=== PATIENT | male | born 1940 | race Two or more races ===

== ENCOUNTER 2021-02-17 17:44 | Emergency (ER) | payer MEDICARE, OTHER ==
[~2021-02-17] VITALS: Ht 167.6 cm; Wt 59.0 kg
[~2021-02-17 17:44] MED LIST: ASPI325T20 PO; LISI5TAB7 PO; METO25TA35 PO
--- NOTE | 2021-02-17 18:20 | NUR ---
DM BERNARD. DR. GAYTAN AT BEDSIDE FOR ASSESSMENT.
[2021-02-17 18:33] LABS: BASOPHILS % (AUTO) 0 % (0-1); EOSINOPHILS % (AUTO) 3 % (1-7); LYMPHOCYTES % (AUTO) 12 % (22-44); MEAN CORPUSCULAR HEMOGLOBIN 29.8 pg (27.5-34.5); MEAN CORPUSCULAR HGB CONC 33.6 g/dL (33.2-36.2); MEAN PLATELET VOLUME 9.6 fL (7.4-10.4); MONOCYTES % (AUTO) 14 % (2-9); NEUTROPHILS % (AUTO) 71 % (42-75); PLATELET COUNT 125 x10^3/uL (130-400); RED BLOOD COUNT 4.94 x10^6/uL (4.38-5.82); RED CELL DISTRIBUTION WIDTH 16.5 % (9.4-14.8)
[2021-02-17 18:44] LABS: ALANINE AMINOTRANSFERASE 13 U/L (12-78); ALBUMIN 3.6 g/dL (3.4-5.0); ANION GAP 5 mmol/L (5-15); CALCIUM 9.1 mg/dL (8.5-10.1); CHLORIDE 108 mmol/L (98-107)
[2021-02-17 18:47] LABS: ALKALINE PHOSPHATASE 84 U/L (45-117); BILIRUBIN,TOTAL 1.1 mg/dL (0.2-1.0); TOTAL PROTEIN 7.4 g/dL (6.4-8.2)
[2021-02-17] MEDS ORDERED: PROPARACAINE OPHTH 0.5%, 15ML ONE (18:47)
[2021-02-17] MEDS ORDERED: FLUORESCEIN OPHTHALMIC 1 MG STRIP ONE (18:47)
[2021-02-17 19:42] VITALS: BP 141/78
== END 2021-02-17 20:28 | disposition home or self-care (01) ==
LOC: ED 18:45
DX: B02.9 Zoster without complications (principal); R94.31 Abnormal electrocardiogram [ECG] [EKG]; R51.9 Headache, unspecified; F17.200 Nicotine dependence, unspecified, uncomplicated
CPT/HCPCS: 36415; 70450; 71045; 80053; 85025; 93005; 99285

== ENCOUNTER 2021-03-03 16:17 | Emergency (ER) | payer MEDICARE ==
[~2021-03-03] VITALS: Ht 175.3 cm; Wt 54.9 kg
[2021-03-03] MEDS ORDERED: PROPARACAINE OPHTH 0.5%, 15ML ONE (17:20)
[2021-03-03] MEDS ORDERED: FLUORESCEIN OPHTHALMIC 1 MG STRIP ONE (17:21)
--- NOTE | 2021-03-03 17:22 | NUR ---
BREAK RN: PT SON AT BEDSIDE FOR TRANSLATION. PT WITH LEFT SIDE NECK PAIN. WAS TREATED RECENTLY FOR SHINGLES ON LEFT SIDE OF FACE. PT C/O PAIN FEELING LIKE NERVE PAIN X 2 DAYS. ALL MONITORS PLACED AND DR PATEL AT BEDSIDE. PT ASSESSMENT, POC DISCUSSED AND QUESTIONS ANSWERED. DR PATEL EXAMINED EARS AND EYES FOR SIGNS OF HERPES BUT NONE SEEN.
--- NOTE | 2021-03-03 17:40 | NUR ---
PT TRANSPORTED TO [facility].
[2021-03-03] MEDS ORDERED: SODIUM CHLORIDE 0.9% 1,000ML IVBOLUS ONE (18:00)
[2021-03-03] MEDS ORDERED: SODIUM CHLORIDE FLUSH 10ML SYR IVF ONE (18:00)
[2021-03-03 18:16] LABS: BASOPHILS % (AUTO) 0 % (0-1); EOSINOPHILS % (AUTO) 2 % (1-7); LYMPHOCYTES % (AUTO) 16 % (22-44); MEAN CORPUSCULAR HEMOGLOBIN 30.1 pg (27.5-34.5); MEAN CORPUSCULAR HGB CONC 33.2 g/dL (33.2-36.2); MEAN PLATELET VOLUME 9.4 fL (7.4-10.4); MONOCYTES % (AUTO) 10 % (2-9); NEUTROPHILS % (AUTO) 72 % (42-75); PLATELET COUNT 191 x10^3/uL (130-400); RED BLOOD COUNT 4.94 x10^6/uL (4.38-5.82); RED CELL DISTRIBUTION WIDTH 16.5 % (9.4-14.8)
[2021-03-03 18:27] LABS: ALANINE AMINOTRANSFERASE 12 U/L (12-78); ALBUMIN 3.1 g/dL (3.4-5.0); CALCIUM 8.6 mg/dL (8.5-10.1); CREATININE 1.25 mg/dL (0.7-1.3)
[2021-03-03 18:29] LABS: ALKALINE PHOSPHATASE 82 U/L (45-117); BILIRUBIN,TOTAL 0.3 mg/dL (0.2-1.0); TOTAL PROTEIN 7.4 g/dL (6.4-8.2)
[2021-03-03 18:36] LABS: ANION GAP 4 mmol/L (5-15); CHLORIDE 109 mmol/L (98-107)
--- NOTE | 2021-03-03 19:00 | NUR ---
Report to Arturo BERNARD.
--- NOTE | 2021-03-03 19:11 | NUR ---
PT LAYING IN BED, A/OX4, SON AT BEDSIDE, PT STATES HE HAS A LITTLE PAIN IN HIS NECK BUT ITS NOT MUCH PT STATES THE PAIN IS AT A 2/10, PT NAD AT THIS TIME
[2021-03-03] MEDS ORDERED: KETOROLAC 60 MG/2 ML ONE (20:06)
[2021-03-03] MEDS ORDERED: KETOROLAC 30 MG/1 ML IVPush ONE ×2 (20:30)
[2021-03-03] MEDS ORDERED: KETOROLAC 30 MG/1 ML IM ONE (20:30)
[2021-03-03 20:49] VITALS: BP 163/78
== END 2021-03-03 20:53 | disposition home or self-care (01) ==
LOC: ED 18:35
DX: S16.1XXA Strain of muscle, fascia and tendon at neck level, initial encounter (principal); S13.9XXA Sprain of joints and ligaments of unspecified parts of neck, initial encounter; I10 Essential (primary) hypertension; R94.31 Abnormal electrocardiogram [ECG] [EKG]; X58.XXXA Exposure to other specified factors, initial encounter; Y93.89 Activity, other specified; Y92.89 Other specified places as the place of occurrence of the external cause; Y99.8 Other external cause status
CPT/HCPCS: 36415; 72050; 80053; 85025; 93005; 96361; 96374; 99285; J1885; J7030